=== PATIENT | female | born 1995 | race Caucasian/White ===

== ENCOUNTER 2019-04-16 12:52 | Emergency (ER) | payer MEDICAID, SELFPAY ==
[2019-04-16 13:36] VITALS: BP 137/115; PULSE 104; RESP 16; TEMP 37; O2SAT 96; BMI 51.5
[2019-04-16 15:02] VITALS: RESP 17
[2019-04-16 15:25] LABS: Bilirubin Urine Neg (NEGATIVE); Blood Urine 3+ (Negative); Glucose Urine UA Norm (Normal); Ketones Urine Negative (Negative); Leukocyte Esterase Urine Negative (Negative); Nitrate Urine Negative (Negative); Protein Urine Neg (Negative); Urine Appearance Clear (CLEAR); Urine Color Yellow (Yellow); Urobilinogen Urine Norm (Negative); pH Urine 5 (5-7)
[2019-04-16 15:26] LABS: Add Urine Culture? Yes; Bacteria Urine TRACE; RBC Urine 15-25 /hpf (0-2); Squamous Epithelial Cell Urine 0-4 (0-5); WBC Urine 0-4 /hpf (0-5)
--- NOTE | 2019-04-16 15:27 | ED_ITS ---
HPI - Female Genitourinary General: Chief complaint: Urogenital-Female Stated complaint: urinary pain, cough Time Seen by Provider: 04/16/19 14:52 History of Present Illness: HPI Narrative: Patient is a 23-year-old G1, P1 female who comes to the ED with vaginal burning and discomfort. Patient says this is been going on for about 2 months. She says the burning in her vagina worsens when she urinates and when she wipes. She denies seeing any blood in her urine. She does states she has had unprotected sex with a male about 3 months ago. She does not know the males sexual history. Patient states she would like to get some STI testing done. Patient has monthly periods and is currently having her period. She denies any vaginal discharge or any heavy bleeding. She had a child 6 months ago and states that she just started getting her periods again and there not as consistent as they were before she got . Associated symptoms: Deny abdominal pain, headache(s) or nausea Date of Last Menstrual Period: 04/16/19 Review of Systems Const: Denies: fever, chills or fatigue Eyes: Denies: change in vision or eye discomfort ENMT: Denies: throat pain, painful swallowing, nasal discharge or nasal congestion Card: Denies: chest pain, palpitations, edema, swelling of feet/ankles, shortness of breath on exertion or shortness of breath when lying down Resp: Denies: shortness of breath, productive cough or non-productive cough GI: Denies: abdominal pain, nausea, vomiting, diarrhea, constipation or blood in stool : Reports: painful urination; Denies: flank pain or blood in urine Musc: Denies: neck pain, back pain or extremity swelling Skin/Breast: Denies: rash or new lesion Neuro: Denies: headache, numbness in extremities or weakness in extremities PFS ED PFSH: Social History Smoking and tobacco status: current every day smoker Female Reproductive History: Date of last menstrual period: 04/16/19 Physical Exam Const: COMMON NORMALS: oriented x3 HENMT: COMMON NORMALS: normocephalic HEAD & SCALP: normocephalic MOUTH: oral and palatal mucosa normal THROAT: posterior oropharynx normal and uvula midline Neck/C-Spine: COMMON NORMALS: supple GENERAL: Yes normal visual inspection Resp: COMMON NORMALS: normal respiratory effort, no retractions, no use of accessory muscles and clear to auscultation bilaterally AUSCULTATION: clear to auscultation bilaterally Cardio: COMMON NORMALS: regular rate, regular rhythm, S1 normal heart sound, S2 normal heart sound, no gallops, no clicks, no murmurs and peripheral pulses 2+ throughout RATE: regular rate RHYTHM: regular rhythm HEART SOUNDS: S1 normal and S2 normal PERIPHERAL PULSES: pulses 2+ throughout GI: COMMON NORMALS: normal to inspection, nondistended, normoactive bowel sounds, soft to palpation, non-tender and no masses PALPATION: Yes soft : COMMON NORMALS: Yes no CVA tenderness BLADDER/KIDNEY EXAM: Yes no CVA tenderness OTHER: I was not able to perform a pelvic/speculum exam because patient was in the vertical flow rooms which are not private and do not have a bed to perform pelvics on. Back/Pelvis: COMMON NORMALS: no CVA tenderness Extremity: COMMON NORMALS: normal to inspection Neuro: COMMON NORMALS: oriented x3 and moves all extremities Skin: COMMON NORMALS: no rashes or lesions noted GENERAL SKIN EXAM: no rashes or lesions noted and dry skin Course Vital Signs: Vital signs: Vital Signs Temperature 98.6 F 04/16/19 13:36 Pulse Rate 104 H 04/16/19 13:36 Respiratory Rate 17 04/16/19 16:52 Blood Pressure 137/115 04/16/19 13:36 Pulse Oximetry 96 04/16/19 16:52 MDM - Female MDM Narrative: Medical decision making narrative: Patient is going to be given a prophylactic treatment for trichomonas since we are pending the final report. Patient was given gonorrhea and chlamydia prophylactic antibiotic treatment while here in the ED. Patient told to follow-up with PCP or PSYCHOLOGICAL ANTHROPOLOGIST doctor in 5 to 7 days for reevaluation. Lab Data: Attestation: I reviewed the patient's lab results. Labs: Lab Results 04/16/19 Range/Units 13:25 Urine Color Yellow (Yellow) Urine Appearance Clear (CLEAR) Urine pH 5 (5-7) Ur Specific Gravit y 1.020 (1.005-1.030) Urine Protein Neg (Negative) Urine Glucose (UA) Norm (Normal) Urine Ketones Negative (Negative) Urine Blood 3+ H (Negative) Urine Nitrate Negative (Negative) Urine Bilirubin Neg (NEGATIVE) Urine Urobilinogen Norm (Negative) mg/dL Ur Leukocyte Lizeth ase Negative (Negative) Urine RBC 15-25 H (0-2) /hpf Urine WBC 0-4 H (0-5) /hpf Ur Squamous Epith Cells 0-4 H (0-5) Urine Bacteria Trace (NONE) Discharge Plan Discharge Patient Disposition: Home, Self-Care Clinical Impression: Vaginal burning Condition: Stable Prescriptions: New Flagyl 250 mg tablet 250 mg PO TID Qty: 21 RF: 0 Discharge Orders: Discharge Order (Routine); Ordered 04/16/19 Ordered By: Dale Siegel Discharge Diet: Regular Discharge Activity: Resume usual activity Patient Instructions: Sexually Transmitted Diseases (ED), Trichomoniasis (ED) Activity Restrictions/Additional Instructions: Follow-up with your PCP in 7 days for reevaluation. Take full course of antibiotic as prescribed. Return to the ED if you have worsening symptoms. Discharge Date/Time: 04/16/19 16:52 Coding Level of Care Code ED Front Desk Clerk for Vladislav Fwalyson Exam Comprehensive
[2019-04-16] MEDS: azithromycin 250 mg Tablet 1000 MG PO (16:06)
[2019-04-16 16:52] VITALS: RESP 17; O2SAT 96
--- NOTE | 2019-04-17 10:40 | DCPLANNER ---
assurance manager insurance had message to speak with patient about getting established with a primary care physician. assurance manager insurance spoke with patient, she stated that she would like to get a primary care physician. assurance manager insurance called the clinic in [facility], spoke with Kiley, a follow up appointment is scheduled for Wednesday, April 24, 2019 at 9:15 with Jayde Boyce. assurance manager insurance called patient with appointment information.
--- NOTE | 2019-04-25 15:32 | DCPLANNER ---
Patient did not attend appointment scheduled for 04.24.19 with [facility] clinic.
== END 2019-04-16 16:52 | disposition home or self-care (01) ==
PROVIDERS: Emergency Provider Physician Assistant
DX: R10.2 Pelvic and perineal pain (principal); F17.200 Nicotine dependence, unspecified, uncomplicated
CPT/HCPCS: 81001; 87086; 87491; 87591; 87661; 96365; 96372; 96375; 99282; 99283; J0696; J2001; Q0144

== ENCOUNTER 2019-04-16 13:23 | Emergency (ER) | payer MEDICAID, SELFPAY | END 2019-04-16 15:01 | disposition home or self-care (01) | LOC: ER 15:00 | DX: Z01.89 Encounter for other specified special examinations (principal) ==